=== PATIENT | female | born 1940 | race Caucasian/White ===

== ENCOUNTER 2021-07-06 05:46 | Emergency (ER) | payer MEDICARE, OTHER ==
[~2021-07-06] VITALS: Ht 170.2 cm; Wt 95.3 kg
[~2021-07-06 05:46] MED LIST: AMLODIPINE BESYL5 MG PO; ASPIR 8181 MG PO; BENAZEPRIL HCL10 MG PO; CEFTIN500 MG PO; CETIRIZINE HCL10 MG PO; CETIRIZINE HCL5 MG PO; FLAGYL250 MG PO; FLAGYL500 MG PO; LABETALOL HCL200 MG PO; LEVAQUIN500 MG PO; LISINOPRIL10 MG PO; Lisinopril PO; METRONIDAZOLE500 MG PO; NIFEDICAL XL60 MG PO; PANTOPRAZOLE SO40 MG PO; TAMSULOSIN HCL0.4 MG PO
[2021-07-06 07:27] VITALS: BP 136/70
[2021-07-06] MEDS ORDERED: ACETAMINOPHEN 325 MG TAB PO ONE (07:30)
== END 2021-07-06 07:42 | disposition home or self-care (01) ==
LOC: ER 06:04
DX: S90.32XA Contusion of left foot, initial encounter (principal); S90.02XA Contusion of left ankle, initial encounter; W01.0XXA Fall on same level from slipping, tripping and stumbling without subsequent striking against object, initial encounter; Y93.01 Activity, walking, marching and hiking; I10 Essential (primary) hypertension; K21.9 Gastro-esophageal reflux disease without esophagitis; I25.2 Old myocardial infarction; Z86.73 Personal history of transient ischemic attack (TIA), and cerebral infarction without residual deficits; Z87.442 Personal history of urinary calculi
CPT/HCPCS: 99283